=== PATIENT | female | born 1990 | race Caucasian/White ===

== ENCOUNTER 2024-10-02 09:00 | Emergency (ER) | payer BC, SELFPAY ==
[2024-10-02 09:30] VITALS: BP 123/69; PULSE 86; RESP 16; TEMP 36.6; O2SAT 99
--- NOTE | 2024-10-02 10:06 | ED_ITS ---
HPI - Ear Problem General Chief complaint: Upper Respiratory Infection Stated complaint: Ear/sinus Time Seen by Provider: 10/02/24 09:57 Source: patient and RN notes reviewed Mode of arrival: ambulatory Limitations: no limitations History of Present Illness HPI Narrative: Patient presents today complaining of a 10 day history of some nasal congestion right ear pain. States the nasal congestion has been slightly improving with right ear pain is worsening. She currently rates her pain 4/10 and has been using a Neti pot and occasionally taking Tylenol with some mild relief. Patient is currently 18 weeks . Related Data Home Medications ?Medication ?Instructions ?Recorded ?Confirmed ?Last Taken ?Type PNV [id number] PO 10/02/24 10/02/24 History Allergies Allergy/AdvReac Type Severity Reaction Status Date / Time amoxicillin Allergy Mild Rash Verified 03/28/24 15:29 clavulanic acid (From Allergy Mild Rash Verified 10/02/24 09:47 Augmentin) Review of Systems Review of Systems: CONSTITUTIONAL: Denies body aches, fever, chills, or sweats. EYES: Denies visual changes, redness, or discharge. ENT: Denies rhinorrhea, sore throat.+ right ear pain, congestion CARDIOVASCULAR: Denies chest pain, palpitations, or edema. RESPIRATORY: Denies cough or dyspnea. GASTROINTESTINAL: Denies abdominal pain, nausea, vomiting, or diarrhea. GENITOURINARY: Denies dysuria or hematuria. SKIN: Denies rash, itching, or wounds. MUSCULOSKELETAL: Denies back pain, joint pain, or myalgia. NEUROLOGIC: Denies headache, numbness, tingling, or weakness. PSYCH: Denies depression or anxiety. [facility] Family History Family History Sibling Asthma Patient's sister is in good health Patient's brother is in good health Mother Patient's mother is in good health Father Patient's father is in good health Grandparent Diabetes mellitus Other Family history of multiple sclerosis Social History Social History Social History: Smoking status: Never smoker Second hand tobacco smoke exposure: No Alcohol intake: never Substance use: never Substance use type: does not use Do You Feel Safe in your Home?: Yes Lack of Transportation: No Lack of Food: Never True Current Housing: I Have Housing Concerned About Future Housing: No Difficulty Paying Gas/Electric Bills: No Difficulty Paying for Meds: No Currently Unemployed: No Education: Bachelor's Degree Difficulty w/ Childcare or Family Care: No Living arrangements: with family Occupation/Education: occupation 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 Please see nursing chart for further information. There is no relevant family history pertinent to the presenting complaint Exam Narrative: GENERAL: Well-appearing, well-nourished, and in no acute distress. HEAD: Normocephalic, atraumatic. EYES: EOMI. No redness or drainage. Conjunctivae normal. ENT: Mucous membranes pink and moist. Nares mildly congested. No rhinorrhea. Left TM normal. Right TM with mild serous effusion without evidence of bacterial infection. Throat normal. Uvula midline. NECK: Normal AROM. Supple. No lymphadenopathy. CHEST: No respiratory distress. Clear to auscultation. HEART: Regular rate and rhythm. No murmur appreciated. EXTREMITIES: Normal range of motion. No edema. SKIN: Warm, dry, no rash. Capillary refill normal. Normal skin turgor. NEURO: No focal deficits. Alert and oriented x3. Gait steady. PSYCH: Normal affect. No signs of depression or anxiety. Course Course Level of Care: Express Care Visit Vital Signs Vital signs: Vital Signs Temperature 97.8 F 10/02/24 09:30 Pulse Rate 86 10/02/24 09:30 Respiratory Rate 16 10/02/24 09:30 Blood Pressure 123/69 10/02/24 09:30 Pulse Oximetry 99 10/02/24 09:30 Oxygen Delivery Room Air 10/02/24 09:30 Temperature 97.8 F 10/02/24 09:30 Pulse Rate 86 10/02/24 09:30 Respiratory Rate 16 10/02/24 09:30 Blood Pressure 123/69 10/02/24 09:30 Pulse Oximetry 99 10/02/24 09:30 Oxygen Delivery Room Air 10/02/24 09:30 Reviewed Medical Decision Making MDM Narrative Medical decision making narrative: Patient's congestion has slightly improved. She does have a mild serous effusion. Discussed using some Flonase and Mucinex my to help with resolution of this fluid. Agrees with plan to follow-up with PCP if symptoms persist or worsen. Anticipatory guidance given. Differential Diagnosis Differential Diagnosis: Sinusitis, otitis media, otitis externa, ruptured TM, serous otitis Vital Signs Vital Signs: Vital Signs Temperature 97.8 F 10/02/24 09:30 Pulse Rate 86 10/02/24 09:30 Respiratory Rate 16 10/02/24 09:30 Blood Pressure 123/69 10/02/24 09:30 Pulse Oximetry 99 10/02/24 09:30 Oxygen Delivery Room Air 10/02/24 09:30 Temperature 97.8 F 10/02/24 09:30 Pulse Rate 86 10/02/24 09:30 Respiratory Rate 16 10/02/24 09:30 Blood Pressure 123/69 10/02/24 09:30 Pulse Oximetry 99 10/02/24 09:30 Oxygen Delivery Room Air 10/02/24 09:30 Critical Care Time Critical Care Time Critical Care Time: No Discharge Plan Discharge Clinical Impression: Acute serous otitis media of right ear Patient Disposition: Home, Self-Care Condition: Stable Instructions: Fluid In The Ear (Serous Otitis Media) (ED) Additional Instructions: Your exam shows a collection of fluid behind your right ear drum without infection. Start some Mucinex and Flonase to help slowly resolve. You may take Tylenol for pain if needed. Follow-up with your PCP if symptoms worsen. Your blood pressure was elevated above 120/80 today at Urgent Care. This puts you above the threshold for follow up. Please schedule a followup visit with your personal physician as soon as possible, for further evaluation and treatment. Even blood pressure exceeding 120/80 may indicate pre-hypertension. Patient Language: Jordanian Prescriptions: No Action PNV [id number] PO Follow-up/Referrals: Olaynika Means MD [Primary Care Provider] - Time of Disposition: 10:11
== END 2024-10-02 10:15 | disposition home or self-care (01) ==
PROVIDERS: Emergency Provider Nurse Practitioner; PCP Family Medicine
DX: O99.891 Other specified diseases and conditions complicating pregnancy (principal); Z3A.18 18 weeks gestation of pregnancy; H65.01 Acute serous otitis media, right ear
CPT/HCPCS: 99211; G0463